=== PATIENT | female | born 1990 | race Caucasian/White ===

== ENCOUNTER → 2018-11-20 | Outpatient (CLI) | payer OTHER, SELFPAY ==
--- NOTE | 2018-11-20 17:56 | REP ---
Clinical: Pelvic pain. Technique: Transabdominal pelvic ultrasound with color evaluation. Findings: Normal anteverted uterus measures 7.4 x 2.2 x 3.8 cm. Endometrial complex measures 5.0 mm thickness. No discrete uterine or endometrial abnormalities appreciated. Bilateral ovaries are normal in appearance. Right ovary measures 3.5 x 1.3 x 1.6 cm. Left ovary measures 2.8 x 1.6 x 1.4 cm. The bladder is unremarkable and measures approximately 9.0 x 7.7 x 7.6 cm. No pelvic fluid or adnexal mass lesion. Impression: Normal pelvic ultrasound. Electronically Signed by Ronan Mckeon MD 11/20/2018 05:48 P
== END ==
LOC: M RAD 17:10
PROVIDERS: ATTEND Nurse Practitioner Family
DX: R10.2 Pelvic and perineal pain (principal)

== ENCOUNTER → 2018-12-14 | Outpatient (REF) | payer OTHER | LOC: M SFHCPLAZ 09:48 | PROVIDERS: ATTEND Dermatology | DX: R21 Rash and other nonspecific skin eruption (principal) ==

== ENCOUNTER → 2018-12-31 | Outpatient (CLI) | payer OTHER ==
[2019-01-01 08:20] LABS: HIV 1&2 SCREEN CENTAUR NEGATIVE (NEGATIVE)
== END ==
LOC: M LAB 16:53
PROVIDERS: ATTEND Dermatology
DX: R21 Rash and other nonspecific skin eruption (principal)